=== PATIENT | male | born 1935 | race Hispanic/Latino ===

== ENCOUNTER 2018-06-11 13:18 | Emergency (ER) | payer OTHER ==
[~2018-06-11] VITALS: Ht 170.2 cm; Wt 88.5 kg
[2018-06-11] MEDS ORDERED: IBUPROFEN400 MG PO (13:59)
[2018-06-11] MEDS ORDERED: BACLOFEN10 MG PO (13:59)
[2018-06-11 14:29] VITALS: BP 142/79
== END 2018-06-11 14:20 | disposition home or self-care (01) ==
LOC: FSED 13:18
DX: S00.83XA Contusion of other part of head, initial encounter (principal); S40.812A Abrasion of left upper arm, initial encounter; M54.5 Low back pain; W01.198A Fall on same level from slipping, tripping and stumbling with subsequent striking against other object, initial encounter; Y92.89 Other specified places as the place of occurrence of the external cause
CPT/HCPCS: 70450; 99282

== ENCOUNTER 2019-04-14 16:40 | Emergency (ER) | payer MEDICARE, OTHER ==
[~2019-04-14] VITALS: Ht 170.2 cm; Wt 81.6 kg
[~2019-04-14 16:40] MED LIST: BACLOFEN10 MG PO; IBUPROFEN400 MG PO
[2019-04-14] MEDS ORDERED: OXYBUTYNIN CHLOR5 MG PO (17:02)
[2019-04-14] MEDS ORDERED: RANITIDINE HCL150 MG (17:02)
[2019-04-14] MEDS ORDERED: FLOMAX0.4 MG PO (17:02)
[2019-04-14] MEDS ORDERED: DEXAMETHASONE SOD PHOS 10 MG/1 ML VIAL IM ONE (17:15)
--- NOTE | 2019-04-14 17:15 | NUR ---
Called the lab and verified the blood tubes needed for CRP, uric acid and Rheumatoid factor. They stated red top, green top and tiger but if we did not have a tiger to send 3 extra red tops. We are sending 4 red tops and green top to the lab for the blood tests needed.
[2019-04-14] MEDS ORDERED: DEXAMETHASONE 10MG/ML PF INJ ONE (17:19)
--- NOTE | 2019-04-14 18:07 | NUR ---
Sending the CBC across to the lab for a micro on the CBC as the platelets are low here on the machine so we can get a verification.
[2019-04-14 18:32] LABS: BASOPHILS # (AUTO) 0.1 (0.0-0.1); EOSINOPHILS # (AUTO) 0.4 (0.0-0.4); EOSINOPHILS % 3.4 % (0.0-6.0); HEMATOCRIT 40.2 % (38.2-49.6); HEMOGLOBIN 13.8 g/dL (14.0-18.0); LYMPHOCYTES # (AUTO) 2.4 (1.0-3.2); LYMPHOCYTES % 22.3 % (18.0-39.1); MEAN CORPUSCULAR HEMOGLOBIN 32.9 pg (28-32); MEAN CORPUSCULAR HGB CONC 34.3 g/dL (31-35); MEAN CORPUSCULAR VOLUME 95.9 fL (81-99); MONOCYTES # (AUTO) 0.9 (0.2-0.8); MONOCYTES % 8.9 % (4.4-11.3); NEUTROPHILS # (AUTO) 6.8 (2.1-6.9); NEUTROPHILS % 64.1 % (38.7-80.0); PLATELET COUNT 112 x10e3/uL (140-360); RED BLOOD COUNT 4.19 x10e6/uL (4.3-5.7); RED CELL DISTRIBUTION WIDTH 13.5 % (11.7-14.4)
--- NOTE | 2019-04-14 18:54 | Diagnostic Imaging Report ---
HAND 3 VIEW RT - HOPD - 3 views HISTORY: Pain COMPARISON: None available. FINDINGS: Bones: No radiographically evident fracture. The alignment is normal. Joints: Mild diffuse degenerative changes Soft tissues: Small density in the radial aspect of the distal middle finger. Soft tissue swelling throughout the right second digit and distal middle finger. IMPRESSION: No radiographically evident fracture. Small radiopaque opaque mehul in the soft tissue of the distal middle finger could represent foreign body, this could be correlated. Signed by: Silas Fernandes MD on 04/14/2019 6:50 PM
--- NOTE | 2019-04-14 18:57 | NUR ---
Report to [facility]
[2019-04-14] MEDS ORDERED: PREDNISONE20 MG PO (19:16)
[2019-04-14] MEDS ORDERED: ULTRAM50 MG PO (19:17)
== END 2019-04-14 19:41 | disposition home or self-care (01) ==
LOC: FSED 16:40
DX: M79.641 Pain in right hand (principal); K21.9 Gastro-esophageal reflux disease without esophagitis; N40.0 Benign prostatic hyperplasia without lower urinary tract symptoms
CPT/HCPCS: 36415; 73130; 80053; 84550; 85025; 86140; 86431; 96372; 99283; J1100

== ENCOUNTER 2022-03-14 13:43 | Inpatient (IN) | payer MEDICARE ==
[~2022-03-14] VITALS: Ht 172.7 cm; Wt 81.6 kg
[~2022-03-14 13:43] MED LIST changes: +FLOMAX0.4 MG PO; +OXYBUTYNIN CHLOR5 MG PO; +PREDNISONE20 MG PO; +RANITIDINE HCL150 MG; +ULTRAM50 MG PO
[2022-03-14 14:22] LABS: BASOPHILS # (AUTO) 0.1 (0.0-0.1); BASOPHILS % 0.8 % (0.0-1.0); EOSINOPHILS # (AUTO) 0.1 (0.0-0.4); EOSINOPHILS % 1.2 % (0.0-6.0); HEMATOCRIT 41.1 % (38.2-49.6); HEMOGLOBIN 13.9 g/dL (14.0-18.0); LYMPHOCYTES # (AUTO) 3.5 (1.0-3.2); LYMPHOCYTES % 30.9 % (18.0-39.1); MEAN CORPUSCULAR HGB CONC 33.8 g/dL (31-35); MEAN CORPUSCULAR VOLUME 100.5 fL (81-99); NEUTROPHILS # (AUTO) 6.6 (2.1-6.9); NEUTROPHILS % 57.5 % (38.7-80.0); PLATELET COUNT 135 x10e3/uL (140-360); RED BLOOD COUNT 4.09 x10e6/uL (4.3-5.7); RED CELL DISTRIBUTION WIDTH 13.6 % (11.7-14.4)
[2022-03-14 14:30] LABS: INR 0.87; PROTHROMBIN TIME 12.6 seconds (11.9-14.5)
[2022-03-14 14:31] LABS: PARTIAL THROMBOPLASTIN TIME 25.2 seconds (23.8-35.5)
[2022-03-14 14:37] LABS: ALBUMIN 3.4 g/dL (3.5-5.0); ALBUMIN/GLOBULIN RATIO 0.9 (0.8-2.0); ANION GAP 12.8 mmol/L (8-16); CALCIUM 9.1 mg/dL (8.4-10.2); CREATININE, SERUM 1.28 mg/dL (0.72-1.25); POTASSIUM 3.8 mmol/L (3.5-5.1)
[2022-03-14 16:09] LABS: BASOPHILS # (AUTO) 0.1 (0.0-0.1); BASOPHILS % 0.6 % (0.0-1.0); EOSINOPHILS # (AUTO) 0.2 (0.0-0.4); EOSINOPHILS % 1.2 % (0.0-6.0); HEMATOCRIT 38.9 % (38.2-49.6); HEMOGLOBIN 12.8 g/dL (14.0-18.0); LYMPHOCYTES # (AUTO) 3.6 (1.0-3.2); LYMPHOCYTES % 29.7 % (18.0-39.1); MEAN CORPUSCULAR HEMOGLOBIN 33.6 pg (28-32); MEAN CORPUSCULAR HGB CONC 32.9 g/dL (31-35); MEAN CORPUSCULAR VOLUME 102.1 fL (81-99); MONOCYTES # (AUTO) 1.1 (0.2-0.8); MONOCYTES % 9.4 % (4.4-11.3); NEUTROPHILS # (AUTO) 7.1 (2.1-6.9); NEUTROPHILS % 58.6 % (38.7-80.0); PLATELET COUNT 114 x10e3/uL (140-360); RED BLOOD COUNT 3.81 x10e6/uL (4.3-5.7); RED CELL DISTRIBUTION WIDTH 13.6 % (11.7-14.4)
[2022-03-14] MEDS ORDERED: SODIUM CHLORIDE 0.9% 1000ML 1,000 ML IV SCH (16:45)
[2022-03-14] MEDS ORDERED: SODIUM CHLORIDE 0.9% 100 ML ONE (16:57)
[2022-03-14] MEDS ORDERED: IOPAMIDOL 370 MG/ML 100 ML INFUS..BTL INJ ONE (16:57)
[2022-03-14] MEDS ORDERED: HYDRALAZINE HCL 20 MG/ML VIAL IV PRN (20:45)
[2022-03-14] MEDS ORDERED: ACETAMINOPHEN 325 MG TAB PO PRN (20:45)
[2022-03-14] MEDS ORDERED: ONDANSETRON HCL INJ 2MG/ML 2ML 2 MG/ML VIAL IV PRN (20:45)
[2022-03-14] MEDS ORDERED: Morphine 2mg Syringe 2 MG/ML SYR IV PRN (21:00)
[2022-03-14 21:30] VITALS: BP 156/80
[2022-03-14] MEDS ORDERED: BISACODYL 5 MG TAB EC PO ONE ×2 (22:15→22:45)
[2022-03-15] MEDS ORDERED: CITRATE OF MAGNESIA 300ML BOTTLE PO ONE ×2 (05:00→07:00)
[2022-03-15 05:08] LABS: BASOPHILS # (AUTO) 0.1 (0.0-0.1); BASOPHILS % 0.8 % (0.0-1.0); EOSINOPHILS # (AUTO) 0.2 (0.0-0.4); EOSINOPHILS % 2.3 % (0.0-6.0); HEMOGLOBIN 12.9 g/dL (14.0-18.0); LYMPHOCYTES # (AUTO) 3.5 (1.0-3.2); LYMPHOCYTES % 38.8 % (18.0-39.1); MEAN CORPUSCULAR HEMOGLOBIN 33.9 pg (28-32); MEAN CORPUSCULAR HGB CONC 33.1 g/dL (31-35); MEAN CORPUSCULAR VOLUME 102.6 fL (81-99); MONOCYTES # (AUTO) 0.9 (0.2-0.8); MONOCYTES % 9.6 % (4.4-11.3); NEUTROPHILS # (AUTO) 4.3 (2.1-6.9); NEUTROPHILS % 47.9 % (38.7-80.0); PLATELET COUNT 98 x10e3/uL (140-360); RED CELL DISTRIBUTION WIDTH 13.6 % (11.7-14.4)
[2022-03-15 05:29] VITALS: BP 143/75
[2022-03-15 05:53] LABS: ANION GAP 14.3 mmol/L (8-16); CALCIUM 8.2 mg/dL (8.4-10.2); CREATININE, SERUM 0.92 mg/dL (0.72-1.25); POTASSIUM 4.3 mmol/L (3.5-5.1)
[2022-03-15 08:12] VITALS: BP 135/81
[2022-03-15 08:45] VITALS: BP 135/81
[2022-03-15] MEDS: SODIUM CHLORIDE 0.9% 1000ML 1,000 ML IV SCH (10:11)
[2022-03-15 11:28] VITALS: BP 138/89
[2022-03-15] MEDS ORDERED: LIDOCAINE HCL 2% LOCAL INJ 5 ML SDV VIAL INJ ONE (15:14)
[2022-03-15] MEDS ORDERED: GLUCAGON FOR INJ 1 MG VIAL ONE (15:14)
[2022-03-15] MEDS ORDERED: HYOSCYAMINE SULFATE 0.5 MG/ML INJ ONE ×2 (15:14→20:37)
[2022-03-15] MEDS ORDERED: PROPOFOL IV EMULSION 10 MG/ML 20 ML VIAL ONE (15:14)
[2022-03-15 16:36] VITALS: BP 130/77
[2022-03-15] MEDS ORDERED: EPINEPHRINE HCL 1:1000 1ML 1 MG/ML AMP ONE (21:12)
[2022-03-15] MEDS ORDERED: EPINEPHRINE 1 MG/ML 30ML VIAL ONE (21:13)
[2022-03-15 22:00] VITALS: BP 120/82
[2022-03-16] VITALS: BP 118/93
[2022-03-16] MEDS: SODIUM CHLORIDE 0.9% 1000ML 1,000 ML IV SCH (00:33)
[2022-03-16 04:00] VITALS: BP 107/73
[2022-03-16 05:10] LABS: BASOPHILS # (AUTO) 0.1 (0.0-0.1); BASOPHILS % 0.6 % (0.0-1.0); EOSINOPHILS # (AUTO) 0.1 (0.0-0.4); EOSINOPHILS % 1.1 % (0.0-6.0); HEMOGLOBIN 13.5 g/dL (14.0-18.0); LYMPHOCYTES # (AUTO) 2.1 (1.0-3.2); LYMPHOCYTES % 18.8 % (18.0-39.1); MEAN CORPUSCULAR HEMOGLOBIN 34.1 pg (28-32); MEAN CORPUSCULAR HGB CONC 33.8 g/dL (31-35); MONOCYTES % 8.7 % (4.4-11.3); NEUTROPHILS % 70.2 % (38.7-80.0); PLATELET COUNT 122 x10e3/uL (140-360); RED BLOOD COUNT 3.96 x10e6/uL (4.3-5.7); RED CELL DISTRIBUTION WIDTH 13.6 % (11.7-14.4)
[2022-03-16 08:37] VITALS: BP 114/78
[2022-03-16 08:59] VITALS: BP 114/78
[2022-03-16] MEDS ORDERED: HYDROCORTISONE ACETATE 25 MG/SUPP.RECT SUPP RC SCH (09:00)
[2022-03-16] MEDS ORDERED: ANUCORT-HC25 MG RC (10:40)
[2022-03-16 11:31] VITALS: BP 129/83
== END 2022-03-16 11:37 | disposition home or self-care (01) | DRG 378 ==
LOC: ER 13:51 → ERHOLD 16:35 → MED/SURG 20:58
PROVIDERS: ADMIT Internal Medicine; ATTEND Internal Medicine
PROC: 0DBM8ZZ Excision of Descending Colon, Via Natural or Artificial Opening Endoscopic (ICD-10-PCS; 2022-03-15)
PROC: 0W3P8ZZ Control Bleeding in Gastrointestinal Tract, Via Natural or Artificial Opening Endoscopic (ICD-10-PCS; 2022-03-15)
PROC: 3E0H8GC Introduction of Other Therapeutic Substance into Lower GI, Via Natural or Artificial Opening Endoscopic (ICD-10-PCS; 2022-03-15)
PROC: 0DBK8ZZ Excision of Ascending Colon, Via Natural or Artificial Opening Endoscopic (ICD-10-PCS; principal; 2022-03-15 19:58)
DX: K57.33 Diverticulitis of large intestine without perforation or abscess with bleeding (principal); N17.9 Acute kidney failure, unspecified; K76.0 Fatty (change of) liver, not elsewhere classified; K63.5 Polyp of colon; K64.8 Other hemorrhoids; N40.0 Benign prostatic hyperplasia without lower urinary tract symptoms; Z83.3 Family history of diabetes mellitus; Z20.822 Contact with and (suspected) exposure to COVID-19
CPT/HCPCS: 36415; 45378; 74174; 80048; 80053; 82607; 82746; 83540; 84466; 84484; 85025; 85045; 85610; 85730; 88305; 99284; J0171; J1610; J1980; J2001; J7030; J7050; Q9967; U0002

== ENCOUNTER 2022-03-18 10:31 | Emergency (ER) | payer MEDICARE ==
[~2022-03-18] VITALS: Ht 172.7 cm; Wt 81.6 kg
[~2022-03-18 10:31] MED LIST changes: +ANUCORT-HC25 MG RC
[2022-03-18] MEDS ORDERED: SODIUM CHLORIDE 0.9% 1000ML 1,000 ML IV STA (10:35)
[2022-03-18 10:52] LABS: BASOPHILS # (AUTO) 0.1 (0.0-0.1); BASOPHILS % 0.9 % (0.0-1.0); EOSINOPHILS # (AUTO) 0.2 (0.0-0.4); EOSINOPHILS % 1.6 % (0.0-6.0); HEMATOCRIT 38.5 % (38.2-49.6); LYMPHOCYTES # (AUTO) 3.3 (1.0-3.2); LYMPHOCYTES % 33.1 % (18.0-39.1); MEAN CORPUSCULAR HEMOGLOBIN 33.5 pg (28-32); MEAN CORPUSCULAR HGB CONC 33.8 g/dL (31-35); MEAN CORPUSCULAR VOLUME 99.2 fL (81-99); MONOCYTES # (AUTO) 0.9 (0.2-0.8); MONOCYTES % 9.5 % (4.4-11.3); NEUTROPHILS # (AUTO) 5.4 (2.1-6.9); NEUTROPHILS % 54.5 % (38.7-80.0); PLATELET COUNT 126 x10e3/uL (140-360); RED BLOOD COUNT 3.88 x10e6/uL (4.3-5.7); RED CELL DISTRIBUTION WIDTH 13.4 % (11.7-14.4)
[2022-03-18 10:53] LABS: INR 0.94; PARTIAL THROMBOPLASTIN TIME 27.7 seconds (23.8-35.5); PROTHROMBIN TIME 13.4 seconds (11.9-14.5)
[2022-03-18 11:04] LABS: CLARITY,URINE CLEAR (CLEAR); COLOR,URINE YELLOW (YELLOW)
[2022-03-18 11:05] LABS: ALANINE AMINOTRANSFERASE 25 IU/L (0-55); ALBUMIN 3.2 g/dL (3.5-5.0); ALBUMIN/GLOBULIN RATIO 0.9 (0.8-2.0); ALKALINE PHOSPHATASE 59 IU/L (40-150); ANION GAP 11.9 mmol/L (8-16); BLOOD UREA NITROGEN 12 mg/dL (7-26); BUN/CREATININE RATIO 11 (6-25); CALCIUM 8.1 mg/dL (8.4-10.2); CARBON DIOXIDE 21 mmol/L (22-29); CHLORIDE 107 mmol/L (98-107); CREATINE KINASE 82 IU/L (30-200); EST GLOMERULAR FILTRATION RATE 64 ML/MIN (60-); GLUCOSE 108 mg/dL (74-118); POTASSIUM 3.9 mmol/L (3.5-5.1); SODIUM 136 mmol/L (136-145)
[2022-03-18 11:05] LABS: KETONES,URINE NEGATIVE (NEGATIVE); LEUKOCYTE ESTERASE ,URINE NEGATIVE (NEGATIVE); NITRITE,URINE NEGATIVE (NEGATIVE); PROTEIN,URINE DIPSTICK NEGATIVE (NEGATIVE); URINE UROBILINOGEN 0.2 mg/dL (0.2 - 1)
[2022-03-18 11:10] LABS: BACTERIA,URINE FEW /HPF; EPITHELIAL CELLS,URINE FEW /LPF; RBC,URINE 0-5 /HPF (0-5); WBC,URINE (MAN) 0-5 /HPF (0-5)
[2022-03-18] MEDS ORDERED: IOPAMIDOL 370 MG/ML 100 ML INFUS..BTL INJ ONE (11:36)
== END 2022-03-18 13:09 | disposition home or self-care (01) ==
LOC: ER 10:49
DX: K57.90 Diverticulosis of intestine, part unspecified, without perforation or abscess without bleeding (principal); K76.0 Fatty (change of) liver, not elsewhere classified; Z20.822 Contact with and (suspected) exposure to COVID-19
CPT/HCPCS: 36415; 71045; 74177; 80053; 81001; 82550; 82553; 83880; 84484; 85025; 85610; 85730; 99284; J7030; Q9967; U0002